=== PATIENT | male | born 1985 | race Caucasian/White ===

== ENCOUNTER 2023-07-31 18:34 | Emergency (ER) | payer OTHER, SELFPAY ==
[2023-07-31 18:42] VITALS: BP 142/96; PULSE 94; RESP 18; TEMP 37.2; O2SAT 98
--- NOTE | 2023-07-31 18:50 | ED.EYEPROB ---
HPI - Eye Problem General Chief complaint: Eye Problems Stated complaint: Foreign Body in Left Eye Time Seen by Provider: 07/31/23 18:50 Source: patient, RN notes reviewed and old records reviewed Mode of arrival: ambulatory Limitations: no limitations History of Present Illness HPI Narrative: 37-year-old male presents to [facility] with complaint of left eye pain, that started about 2:00 a.m. today. patient states was working under a trailer when he thinks he got something in his eye. Patient tr chief complaint: eye pain Onset (ago): hour(s) (4) Onset description: sudden Duration: constant Location: left eye Related Data Patient tetanus UTD: No Home Medications Medication Instructions Recorded Confirmed insulin lispro 100 unit/mL sliding scale dose continuous IV 07/31/23 subcutaneous solution (Humalog infusion U-100 Insulin) pantoprazole 40 mg tablet,delayed 40 mg PO HS 07/31/23 07/31/23 release Allergies Allergy/AdvReac Type Severity Reaction Status Date / Time No Known Allergies Allergy Verified 07/31/23 18:52 Review of Systems Constitutional: Constitutional: Reports no additional constitutional complaints Eyes: Eyes: Reports as per HPI, Denies change in vision, Reports irritation, Reports photophobia and Reports other ( tearing, redness) ENT: Reports system reviewed and no additional complaints, except as documented Cardiovascular: Cardiovascular: Reports no additional cardiovascular complaints Respiratory: Respiratory: Reports no additional respiratory complaints Neurologic: Reports system reviewed and no additional complaints, except as documented PMFSH Comments At the time of my signature, I reviewed and agree with the nursing past medical, surgical, social, and family history. There is no relevant family history pertinent to the patient complaint. Exam Const: General: cooperative, healthy appearing, no acute distress and well nourished Nutritional Appearance: well nourished Orientation/consciousness: patient oriented x3 Limitations: no limitations HENMT: Head: normal to inspection and normocephalic Ears: external ears normal, TM's normal bilaterally, mastoids normal and Abnormal EAC present Face/Nose/Sinus: normal facial exam Face and sinus: normal facial exam Mouth: Yes Normal oral and palatal mucosa present, Yes oropharynx normal and Yes moist mucous membranes Throat: posterior oropharynx normal, tonsils normal, uvula midline and no uvular edema Eyes: Alignment and Position: alignment normal Periorbital: periorbital findings normal Eyelids: eyelids normal Sclera: sclerae normal Cornea: corneas abnormal on the left fluorescein used and abrasion; with no foreign body noted and without ulcerations Pupils: Equal, round and reactive pupils present Resp: Effort & Inspection: normal respiratory effort, able to speak in complete sentences, no audible wheezes, no cough, no respiratory distress and no retractions Auscultation: clear to auscultation bilaterally, no crackles, no rales, no rhonchi and no wheezes Cardio: Rate: regular rate Rhythm: regular rhythm Skin: General skin exam: normal color and no rashes or lesions noted Neuro: General: patient oriented x3 Cranial nerves: Yes Equal, round and reactive pupils present Psych: Appearance: grossly normal Course Course Emergency Course: Some parts of this dictation were generated by voice recognition software and may contain typographical and/or grammatical inaccuracies. Level of Care: Express Care Visit Vital Signs Vital signs: Vital Signs Temperature 98.9 F 07/31/23 18:42 Pulse Rate 94 07/31/23 18:42 Respiratory Rate 18 07/31/23 18:42 Blood Pressure 142/96 H 07/31/23 18:42 Pulse Oximetry 98 07/31/23 18:42 Oxygen Delivery Room Air 07/31/23 18:42 Temperature 98.9 F 07/31/23 18:42 Pulse Rate 94 07/31/23 18:42 Respiratory Rate 18 07/31/23 18:42 Blood Pressure 142/96 H 07/31/23 18:4
[2023-07-31] MEDS: TETANUS,DIPHTHERIA,AC PERTUSSIS ADULT (0.5 ML) BOOSTRIX IM (19:10)
== END 2023-07-31 19:30 | disposition home or self-care (01) ==
PROVIDERS: Emergency Provider Registered Nurse
DX: S05.02XA Injury of conjunctiva and corneal abrasion without foreign body, left eye, initial encounter (principal); Z79.4 Long term (current) use of insulin; Z23 Encounter for immunization; X58.XXXA Exposure to other specified factors, initial encounter
CPT/HCPCS: 90715; 99203; A9270; G0463